=== PATIENT | female | born 1995 | race Caucasian/White ===

== ENCOUNTER 2018-10-07 17:47 | Emergency (ER) | payer OTHER ==
[~2018-10-07] VITALS: Ht 152.4 cm; Wt 63.5 kg
[~2018-10-07 17:47] MED LIST: ALBU90OI; AMOCLA875 PO; AZIT250 PO; AZIT500 PO; CEPH500 PO; CIPR500 PO; CYCL10 PO; HYDACE5 PO; IBUP100S; IBUP800 PO; LORA10 PO; MEDR150I IM; NAPR500 PO; ONDA4 PO; PERM5TC TOP; Prednisone20 MG PO; RXPHEN200 PO
== END 2018-10-07 18:10 | disposition home or self-care (01) ==
LOC: ER 17:47
DX: L98.9 Disorder of the skin and subcutaneous tissue, unspecified (principal); Z88.0 Allergy status to penicillin; Z88.1 Allergy status to other antibiotic agents
CPT/HCPCS: 99283

== ENCOUNTER 2019-01-27 16:45 | Emergency (ER) | payer OTHER ==
[~2019-01-27] VITALS: Ht 152.4 cm; Wt 61.2 kg
[2019-01-27] MEDS ORDERED: CEPH500 PO (18:48)
== END 2019-01-27 18:53 | disposition home or self-care (01) ==
LOC: ER 16:45
DX: S61.211A Laceration without foreign body of left index finger without damage to nail, initial encounter (principal); W26.0XXA Contact with knife, initial encounter; Z88.0 Allergy status to penicillin; Z88.1 Allergy status to other antibiotic agents; J45.909 Unspecified asthma, uncomplicated
CPT/HCPCS: 12001; 99282-25

== ENCOUNTER 2019-05-24 16:51 | Emergency (ER) | payer OTHER | END 2019-05-24 17:15 | disposition left against medical advice (07) | LOC: ER 16:51 | DX: Z53.21 Procedure and treatment not carried out due to patient leaving prior to being seen by health care provider (principal) ==

== ENCOUNTER 2020-10-22 20:02 | Emergency (ER) | payer OTHER ==
[~2020-10-22] VITALS: Ht 152.4 cm; Wt 63.5 kg
[2020-10-22] MEDS ORDERED: Cyclobenzaprine5 MG PO (22:40)
== END 2020-10-22 23:00 | disposition home or self-care (01) ==
LOC: ER 20:02
DX: M43.6 Torticollis (principal); Z88.0 Allergy status to penicillin; Z88.1 Allergy status to other antibiotic agents; V49.50XA Passenger injured in collision with unspecified motor vehicles in traffic accident, initial encounter; Y92.410 Unspecified street and highway as the place of occurrence of the external cause
CPT/HCPCS: 72040; 72070; 99284-25; A9270

== ENCOUNTER → 2021-02-26 | Outpatient (CLI) | payer OTHER ==
[~2021-02-26] MED LIST changes: +Cyclobenzaprine5 MG PO
[2021-02-26 18:47] LABS: BASOPHILS ABSOLUTE AUTO 0.03 K/mm3 (0.00-0.23); BASOPHILS PERCENT AUTO 0 % (0-2); EOSINOPHILS ABSOLUTE AUTO 0.14 K/mm3 (0.00-0.68); EOSINOPHILS PERCENT AUTO 2 % (0-6); Hematocrit 39.3 % (33.0-51.0); Hemoglobin 13.6 g/dL (11.5-16.0); IMMATURE GRAN ABSOLUTE AUTO 0.03 K/mm3 (0.00-0.10); IMMATURE GRAN PERCENT AUTO 0 % (0-1); LYMPHOCYTES ABSOLUTE AUTO 3.67 K/mm3 (0.84-5.20); LYMPHOCYTES PERCENT AUTO 39 % (21-46); MONOCYTES ABSOLUTE AUTO 0.64 K/mm3 (0.16-1.47); MONOCYTES PERCENT AUTO 7 % (4-13); Mean Corpuscular HGB 30.1 pg (26.0-34.0); Mean Corpuscular HGB Conc 34.6 g/dL (31.5-36.5); Mean Corpuscular Volume 87 fL (80-100); Mean Platelet Volume 9.3 fL (9.1-12.4); NEUTROPHILS PERCENT AUTO 52 % (41-73); Platelet Count 292 K/mm3 (150-400); RDW Coefficient Variation 12.2 % (11.7-14.2); RDW Standard Deviation 38.5 fL (35.1-46.3); Red Blood Cell Count 4.52 M/mm3 (3.80-5.20); White Blood Cell Count 9.41 K/mm3 (4.00-11.30)
[2021-02-26 18:57] LABS: Alanine Aminotransfer (ALT/SGP 28 U/L (12-78); Albumin, Blood 3.8 g/dL (3.4-5.0); Alk Phos 88 U/L (40-126); Anion Gap 10 mmol/L (6-16); Aspartate Aminotrans (AST/SGOT 13 U/L (12-37); Bilirubin, Total 0.2 mg/dL (0.1-1.0); Blood Urea Nitrogen 15 mg/dL (8-24); Bun/Creatinine Ratio 23.1 (12.0-20.0); CO2, Blood 27 mmol/L (21-32); Calcium, Blood 8.5 mg/dL (8.5-10.1); Chloride, Blood 104 mmol/L (98-108); Creatinine, Blood 0.65 mg/dL (0.40-1.00); Glomerular Filtration Rate >60 (60-); Glucose, Blood 78 mg/dL (70-99); Potassium, Blood 3.3 mmol/L (3.5-5.5); Sodium, Blood 141 mmol/L (136-145); Total Protein, Blood 7.8 g/dL (6.4-8.2)
== END | disposition home or self-care (01) ==
LOC: LAB 18:43 → LAB SHORT 18:43
PROVIDERS: Family Medicine
DX: R10.9 Unspecified abdominal pain (principal)
CPT/HCPCS: 80053; 85025

== ENCOUNTER → 2024-07-26 | Outpatient (CLI) | payer OTHER | END | disposition home or self-care (01) | LOC: LAB 13:19 → LAB SHORT 13:19 | PROVIDERS: Nurse Practitioner Family | DX: Z12.4 Encounter for screening for malignant neoplasm of cervix (principal) | CPT/HCPCS: G0123 ==